=== PATIENT | female | born 1980 | race Caucasian/White ===

== ENCOUNTER 2019-01-09 12:52 | Emergency (ER) | payer SELFPAY ==
[~2019-01-09] VITALS: Ht 167.6 cm; Wt 55.8 kg
[2019-01-09 13:59] VITALS: BP 107/79
--- NOTE | 2019-01-09 14:32 | PHYS DOC ---
Past Medical History Past Medical History: No Pertinent History (JODI PIRES APRN) Past Surgical History: Tubal ligation (JODI PIRES APRN) Alcohol Use: Heavy Drug Use: Marijuana (PRANAYJODI APRN) Adult General Chief Complaint Chief Complaint: SORE THROAT HPI HPI Patient is a 38 year old female who presents with sore throat for 4 days. Patient states her daughter as well as have strep. Denies any fever but is complaining of chills. (PRANAYJODI APRN) Review of Systems Review of Systems Constitutional: Denies fever or chills [] Eyes: Denies change in visual acuity, redness, or eye pain [] HENT: Reports sore throat for 4 days. Denies nasal congestion Respiratory: Denies cough or shortness of breath [] Cardiovascular: No additional information not addressed in HPI [] GI: Denies abdominal pain, nausea, vomiting, bloody stools or diarrhea [] : Denies dysuria or hematuria [] Musculoskeletal: Denies back pain or joint pain [] Integument: Denies rash or skin lesions [] Neurologic: Denies headache, focal weakness or sensory changes [] All other systems were reviewed and found to be within normal limits, except as documented in this note. (ARIESJODI Saini APRN) Allergies Allergies Allergies Coded Allergies Type Severity Reaction Last Updated Verified No Known Drug Allergies 01/09/19 No (LESLY PEDRAZA MD) Physical Exam Physical Exam Constitutional: Well developed, well nourished, no acute distress, non-toxic appearance. [] HENT: Normocephalic, atraumatic, bilateral external ears normal, oropharynx moist, no oral exudates, nose normal. [] Posterior pharynx with moderate erythema, there is trace exudate on the right side. Eyes: PERRLA, EOMI, conjunctiva normal, no discharge. [] Neck: Normal range of motion, no tenderness, supple, no stridor. [] Cardiovascular:Heart rate regular rhythm, no murmur [] Lungs & Thorax: Bilateral breath sounds clear to auscultation [] Abdomen: Bowel sounds normal, soft, no tenderness, no masses, no pulsatile masses. [] Skin: Warm, dry, no erythema, no rash. [] Back: No tenderness, no CVA tenderness. [] Extremities: No tenderness, no cyanosis, no clubbing, ROM intact, no edema. [] Neurologic: Alert and oriented X 3, normal motor function, normal sensory function, no focal deficits noted. [] Psychologic: Affect normal, judgement normal, mood normal. [] (JODI PIRES APRN) Current Patient Data Vital Signs Vital Signs Date Time Temp Pulse Resp B/P (MAP) Pulse Ox O2 Delivery O2 Flow Rate FiO2 01/09/19 13:59 98.0 80 16 107/79 (88) 98 Room Air 98.0 (LESLY PEDRAZA MD) Lab Values Laboratory Tests Test 01/09/19 13:55 Group A Streptococcus Rapid Positive (NEGATIVE) (LESLY PEDRAZA MD) EKG EKG [] (JODI PIRES APRN) Radiology/Procedures Radiology/Procedures [] (JODI PIRES APRN) Course & Med Decision Making Course & Med Decision Making Pertinent Labs and Imaging studies reviewed. (See chart for details) This is a 38-year-old female patient presenting to the ED today with sore throat for 4 days. Positive rapid strep. Discharged with amoxicillin. Tylenol/ Motrin for pain or fever. (JODI PIRES APRN) Course & Med Decision Making Staff Physician Addendum: I was working in the ER during the course of this patient's visit. I was available for consultation as needed, but I was not directly involved in the care of this patient. (LESLY PEDRAZA MD) Dragon Disclaimer Dragon Disclaimer This electronic medical record was generated, in whole or in part, using a voice recognition dictation system. (JODI PIRES APRN) Departure Departure Impression: Primary Impression: Acute streptococcal pharyngitis Disposition: HOME, SELF-CARE Condition: STABLE Referrals: UNKNOWN PCP NAME (PCP) Follow-up with your own doctor in 1-2 weeks Patient Instructions: Strep Infections Additional Instructions: Your strep test is positive, complete your antibiotics. Take Tylenol/ Motrin for pain or fever. Use saltwater gargles as needed Scripts Amoxicillin (AMOXICILLIN) 875 Mg Tablet 1 TAB PO BID, #20 TAB Prov: JODI PIRES APRN 01/09/19 JODI PIRES APRN Jan 09, 2019 14:32 LESLY PEDRAZA MD Jan 11, 2019 06:00
[2019-01-09] MEDS ORDERED: AMOX875T PO (14:35)
== END 2019-01-09 14:52 | disposition home or self-care (01) ==
LOC: ER 12:52
DX: J02.0 Streptococcal pharyngitis (principal); B95.5 Unspecified streptococcus as the cause of diseases classified elsewhere; R68.83 Chills (without fever); F10.20 Alcohol dependence, uncomplicated; Y90.9 Presence of alcohol in blood, level not specified; Z98.51 Tubal ligation status
CPT/HCPCS: 87880; 99283